=== PATIENT | female | born 1975 | race American Indian/Alaskan Native ===

== ENCOUNTER 2017-09-06 15:12 | Emergency (ER) | payer OTHER ==
--- NOTE | 2017-09-06 15:19 | PDOC ---
Rapid Medical Evaluation Time Seen by Provider: 09/06/17 15:16 Medical Evaluation: 09/06/17 15:16 I have performed a brief in-person evaluation of this patient. The patient presents with a chief complaint of: abd pain started 1.5 hours ago, nausea, denies vomiting, epigastric/RUQ pain, had gall stone removal 3 months ago, same type of pain Pertinent physical exam findings: uncomfortable appearing I have ordered the following: labs, urine The patient will proceed to the ED for further evaluation. Discharge Disposition - Diagnosis Abdominal pain - Referrals - Patient Instructions - Post Discharge Activity
[2017-09-06 15:25] VITALS: TEMP 98.2; BMI 29.4
[2017-09-06 15:41] LABS: EOS % 1.7 % (0-4.5); HEMATOCRIT 37.4 % (32.4-45.2); HEMOGLOBIN 13.1 GM/dL (10.7-15.3); LYMPH % 39.4 % (8-40); MCH 31.7 pg (25.7-33.7); MCHC 34.9 g/dl (32.0-36.0); MEAN CELL VOLUME 90.9 fl (80-96); MEAN PLT VOLUME 7.6 fl (7.5-11.1); MONO % 5.1 % (3.8-10.2); NEUT % 52.8 % (42.8-82.8); PLATELET COUNT 287 K/MM3 (134-434); RBC 4.11 M/mm3 (3.60-5.2); RDW 12.6 % (11.6-15.6); WHITE BLOOD COUNT 4.1 K/mm3 (4.0-10.0)
[2017-09-06 15:51] LABS: HCG,QUALITATIVE URINE NEGATIVE
[2017-09-06 15:58] LABS: URINE APPEARANCE CLEAR; URINE BILIRUBIN NEGATIVE (<2.0 mg/dL); URINE BLOOD 1+ (NEGATIVE); URINE COLOR LTYELLOW; URINE GLUCOSE (UA) NEGATIVE (NEGATIVE); URINE KETONE NEGATIVE (NEGATIVE); URINE LEUK ESTERASE NEGATIVE (NEGATIVE); URINE NITRITE NEGATIVE (NEGATIVE); URINE PROTEIN NEGATIVE (NEGATIVE); URINE UROBILINOGEN NEGATIVE mg/dL (0.2-1.0)
[2017-09-06 16:16] LABS: EPI CELLS RARE /HPF (FEW); GRANULAR CASTS 1 /lpf
[2017-09-06 16:17] LABS: ALBUMIN 3.8 g/dl (3.4-5.0); ALK PHOS 80 U/L (45-117); ANION GAP 6 (8-16); BILIRUBIN,TOTAL 0.6 mg/dL (0.2-1.0); BLOOD UREA NITROGEN 7 mg/dL (7-18); CALCIUM 8.7 mg/dL (8.5-10.1); CHLORIDE 107 mmol/L (98-107); CO2 27 mmol/L (21-32); CREATININE 0.5 mg/dL (0.55-1.02); GLUCOSE,RANDOM 123 mg/dL (74-106); SGOT/AST 69 U/L (15-37); SGPT/ALT 49 U/L (12-78); SODIUM 140 mmol/L (136-145); TOT PROT 7.5 g/dl (6.4-8.2)
--- NOTE | 2017-09-06 16:39 | PDOC ---
History of Present Illness - General Chief Complaint: Pain Stated Complaint: SOB Time Seen by Provider: 09/06/17 15:16 History Source: Patient Exam Limitations: No Limitations - History of Present Illness Travel History: No Timing/Duration: reports: constant Quality: reports: moderate, cramping Abdominal Pain Onset Location: reports: RUQ Pain Radiation: reports: epigastric, back Activities at Onset: reports: none Aggravating Factors: improves with: None Alleviating Factors: improves with: None Past History - Travel Traveled outside of the country in the last 30 days: No - Past Medical History Allergies/Adverse Reactions: Allergies Allergy/AdvReac Type Severity Reaction Status Date / Time No Known Allergies Allergy Verified 09/06/17 15:20 Home Medications: Ambulatory Orders NK [No Known Home Medication] 09/06/17 COPD: No - Surgical History Cholecystectomy: Yes - Suicide/Smoking/Psychosocial Hx Smoking History: Never smoked Patient Lives Alone: No Lives with/in: spouse/SO Review of Systems - Review of Systems Able to Perform ROS?: No Constitutional: No: Symptoms Reported HEENTM: No: Symptoms Reported Respiratory: No: Symptoms reported Cardiac (ROS): No: Symptoms Reported ABD/GI: Yes: Abdominal cramping. No: Nausea, Vomiting Musculoskeletal: Yes: Back Pain (rt midback) Integumentary: No: Symptoms Reported Neurological: No: Symptoms reported Endocrine: No: Symptoms Reported Hematologic/Lymphatic: No: Symptoms Reported *Physical Exam - Vital Signs Last Vital Signs Temp Pulse Resp BP Pulse Ox 98.2 F 68 18 106/59 99 09/06/17 15:21 09/06/17 15:21 09/06/17 15:21 09/06/17 15:21 09/06/17 15:21 - Physical Exam General Appearance: Yes: Nourished, Appropriately Dressed. No: Apparent Distress HEENT: positive: EOMI, GABINO. negative: Pale Conjunctivae Gastrointestinal/Abdominal: positive: Soft, Tenderness (ruq, rt flank), Other ( noted 3 healed inciosion to RUQ (cholystectomy)). negative: Distended, Guarding , Rebound Musculoskeletal: positive: CVA Tenderness (R) (mild) Extremity: positive: Normal Capillary Refill Integumentary: positive: Normal Color, Warm, Moist Neurologic: positive: Motor Strength 5/5 (ambulatory) ED Treatment Course - LABORATORY CBC & Chemistry Diagram: 09/06/17 15:35 09/06/17 15:34 - ADDITIONAL ORDERS Additional order review: Laboratory Results 09/06/17 09/06/17 09/06/17 15:40 15:35 15:34 Sodium 140 Potassium 4.0 Chloride 107 Carbon Dioxide 27 Anion Gap 6 L BUN 7 Creatinine 0.5 L Creat Clearance w eGFR > 60 Random Glucose 123 H Calcium 8.7 Total Bilirubin 0.6 AST 69 H ALT 49 Alkaline Phosphatase 80 Total Protein 7.5 Albumin 3.8 Lipase 87 Urine Color Ltyellow Urine Appearance Clear Urine pH 7.0 Ur Specific [place] 1.006 Urine Protein Negative Urine Glucose (UA) Negative Urine Ketones Negative Urine Blood 1+ H Urine Nitrite Negative Urine Bilirubin Negative Urine Urobilinogen Negative Ur Leukocyte Esterase Negative Urine WBC (Auto) 1 Urine RBC (Auto) <1 Ur Epithelial Cells Rare Granular Casts 1 Urine HCG, Qual Negative 09/06/17 15:35 RBC 4.11 MCV 90.9 MCHC 34.9 RDW 12.6 MPV 7.6 Neutrophils % 52.8 Lymphocytes % 39.4 Monocytes % 5.1 Eosinophils % 1.7 Basophils % 1.0 - RADIOLOGY Radiology Studies Ordered: Category Date Time Status SPIRAL- RENAL-STONE CT [CT] Stat CT Scan 09/06/17 16:31 Ordered Medical Decision Making - Medical Decision Making 09/06/17 17:15 Patient here with gradual onset and worsening right upper quadrant pain radiating to her right flank and right mid back. Patient has no other associated factors including fever, nausea, change in urine pattern, change in bowel pattern, or abdominal distention. Patient status post [facility]cyst[facility] months [facility]. Patient denies irregular menses or history of renal colic. 09/06/17 17:18 Differential diagnoses to include renal colic, common bile duct obstruction, muscle skeletal, inflammatory process, 09/06/17 17:46 Laboratory Tests 09/06/17 09/06/17 09/06/17 15:34 15:35 15:35 WBC 4.1 Hgb 13.1 Hct 37.4 Plt Count 287 Neutrophils % 52.8 Sodium 140 Potassium 4.0 Chloride 107 Carbon Dioxide 27 Anion Gap 6 L BUN 7 Creatinine 0.5 L Creat Clearance w eGFR > 60 Random Glucose 123 H Calcium 8.7 Total Bilirubin 0.6 AST 69 H ALT 49 Alkaline Phosphatase 80 Total Protein 7.5 Albumin 3.8 Lipase 87 Urine Blood Ur Leukocyte Esterase Urine WBC (Auto) Urine RBC (Auto) Urine HCG, Qual 09/06/17 15:40 WBC Hgb Hct Plt Count Neutrophils % Sodium Potassium Chloride Carbon Dioxide Anion Gap BUN Creatinine Creat Clearance w eGFR Random Glucose Calcium Total Bilirubin AST ALT Alkaline Phosphatase Total Protein Albumin Lipase Urine Blood 1+ H Ur Leukocyte Esterase Negative Urine WBC (Auto) 1 Urine RBC (Auto) <1 Urine HCG, Qual Negative 09/06/17 18:[address] shows no evidence of urinary tract calculus or obstructive uropathy. Normal-appearing appendix. No evidence of bowel obstruction. Status post cholecystectomy with diffuse common bile duct dilatation 10 mm, as above is likely physiological changes postcholecystectomy. Please correlate with serum biliary markers and LFTs. Patient states feeling better after receiving Toradol. We'll discharge home with recommendations to follow-up with surgeon and/or her PMD. 09/06/17 18:17 *DC/Admit/Observation/Transfer Diagnosis at time of Disposition: Abdominal pain - Discharge Dispostion Disposition: HOME Condition at time of disposition: Improved - Referrals - Patient Instructions Printed Discharge Instructions: DI for Abdominal Pain-Adult Additional Instructions: Your blood work and CAT scan and urine were negative for any emergent causes. I do recommend that you follow-up either with your primary care physician and or surgeon if symptoms continue. May take Tylenol Motrin for discomfort. - Post Discharge Activity
[2017-09-06] MEDS ORDERED: KETOROLAC TROMETHAMINE 60 MG/2 ML VIAL IM ONE (17:15)
[2017-09-06] MEDS ORDERED: KETOROLAC TROMETHAMINE 60 MG/2 ML VIAL ONE (18:01)
[2017-09-06 18:26] VITALS: BP 112/51; PULSE 71
== END 2017-09-06 18:26 | disposition home or self-care (01) ==
LOC: JER 15:12
PROC: 3E0333Z Introduction of Anti-inflammatory into Peripheral Vein, Percutaneous Approach (ICD-10-PCS; principal; 2017-09-06)
DX: R10.10 Upper abdominal pain, unspecified (principal); G89.18 Other acute postprocedural pain; Z90.49 Acquired absence of other specified parts of digestive tract
CPT/HCPCS: 36415; 74176; 80053; 81003; 81015; 83690; 84703; 85025; 87086; 99282-25